=== PATIENT | male | born 1970 | race Caucasian/White ===

== ENCOUNTER 2016-09-30 12:43 | Emergency (ER) | payer OTHER ==
[~2016-09-30] VITALS: Ht 172.7 cm; Wt 77.3 kg
[~2016-09-30 12:43] MED LIST: AMLO-145 PO; BACL10TA PO; CALC667C PO; CITA10TA72 PO; CLON-412 PO; DOCU-144 PO; FER325 PO; GABA-526 PO; LEVO50TA83 PO; LIDO700A45 TD; LORA1TAB PO; METH-417 PO; OXYC-209 PO; SAN30GM TOP; UDMOM PO
[2016-09-30 12:51] VITALS: Ht 172.7 cm; Wt 77.3 kg
--- NOTE | 2016-09-30 13:58 | RADRPT ---
PROCEDURE: XR Chest. CLINICAL INDICATION: Altered level of consciousness. TECHNIQUE: Single AP portable chest COMPARISON: 07/27/2016 FINDINGS: The cardiomediastinal silhouette is within normal limits. Right dialysis catheter tip overlying the mid superior vena cava. .The lungs are clear though pleural effusion or focal consolidation. No pne umothorax. Chronic midshaft revealed fracture deformity of the left clavicle. IMPRESSION: 1. No evidence for active cardiopulmonary disease. RPTAT:AAJJ Physician Alaina Date Time Electronically viewed and signed by Physician Alaina on 09/30/2016 13:58 JOSELUIS/
[2016-09-30 14:14] LABS: BASOPHILS % 0.4 % (0.0-2.0); EOSINOPHILS # 0.1 10^3/ul (0.0-0.5); EOSINOPHILS % 1.2 % (0.0-7.0); HEMATOCRIT 35.3 % (42.0-52.0); LYMPHOCYTES # 1.1 10^3/ul (0.8-2.9); LYMPHOCYTES % 14.8 % (15.0-51.0); MEAN CORPUSCULAR HEMOGLOBIN 29.3 pg (29.0-33.0); MEAN CORPUSCULAR HGB CONC 34.1 g/dl (32.0-37.0); MEAN CORPUSCULAR VOLUME 86.1 fl (82.0-101.0); MEAN PLATELET VOLUME 8.2 fl (7.4-10.4); MONOCYTE # 0.4 10^3/ul (0.3-0.9); MONOCYTES % 5.6 % (0.0-11.0); NEUTROPHIL # 5.7 10^3/ul (1.6-7.5); PLATELET COUNT 239 10^3/UL (140-440); RED CELL DISTRIBUTION WIDTH 14.4 % (11.5-14.5); UNCORRECTED WBC 7.3 10^3/ul (4.8-10.8); WHITE BLOOD COUNT 7.3 10^3/ul (4.8-10.8)
[2016-09-30 14:19] LABS: CONDITION 1
[2016-09-30 14:20] LABS: ALBUMIN 3.5 g/dl (3.3-4.9); CHLORIDE 101 mmol/L (97-110)
[2016-09-30 14:21] LABS: POTASSIUM 4.5 mmol/L (3.5-5.1); SODIUM 142 mmol/L (135-144)
[2016-09-30 14:23] LABS: ALANINE AMINOTRANSFERASE 18 IU/L (13-69); ALBUMIN/GLOBULIN RATIO 0.87; ALKALINE PHOSPHATASE 76 IU/L (42-121); ANION GAP 21 (8-16); ASPARTATE AMINO TRANSFERASE 21 IU/L (15-46); BLOOD UREA NITROGEN 62 mg/dl (7-20); CARBON DIOXIDE 25 mmol/L (21-31); CREATININE 8.55 mg/dl (0.61-1.24); TOTAL PROTEIN 7.5 g/dl (6.1-8.1)
[2016-09-30 14:24] LABS: CALCIUM 8.9 mg/dl (8.4-10.2); GLUCOSE 79 mg/dl (70-220)
[2016-09-30 14:33] LABS: ACETAMINOPHEN < 10.0 ug/ml (10.0-30.0); ETHANOL < 10.0 mg/dl; SALICYLATE < 1.0 mg/dl (5.0-30.0)
[2016-09-30 14:36] LABS: TROPONIN-I < 0.012 ng/ml (0.00-0.12)
[2016-09-30 14:56] LABS: BARBITURATES NEGATIVE (NEGATIVE); BENZODIAZEPINES NEGATIVE (NEGATIVE); CANNABINOIDS NEGATIVE (NEGATIVE); COCAINE NEGATIVE (NEGATIVE); OPIATES NEGATIVE (NEGATIVE)
[2016-09-30] MEDS ORDERED: LORAZEPAM 2 MG INJ IM ONE (16:30)
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
[2016-09-30 21:17] VITALS: BP 132/78; PULSE 74; RESP 16; TEMP 98.4
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
== END 2016-09-30 22:42 | disposition home or self-care (01) ==
LOC: E/R 12:43
DX: F33.3 Major depressive disorder, recurrent, severe with psychotic symptoms (principal); F41.9 Anxiety disorder, unspecified; N18.6 End stage renal disease; E03.9 Hypothyroidism, unspecified; I12.0 Hypertensive chronic kidney disease with stage 5 chronic kidney disease or end stage renal disease; Z87.891 Personal history of nicotine dependence
CPT/HCPCS: 71010; 80053; 80306; 80307; 84484; 85025; J2060; 93005; 96372